=== PATIENT | female | born 1980 | race Caucasian/White ===

== ENCOUNTER 2021-07-31 15:20 | Outpatient (CLI) | payer OTHER, SELFPAY ==
--- NOTE | ~2021-07-31 | US_ITS ---
EXAMINATION: US venous doppler [facility] DATE: 07/31/2021 15:49 INDICATION: Left lower limb pain TECHNIQUE: Bearden scale images without and with compression and Doppler images of the left lower extrem ity veins were obtained. COMPARISON: None FINDINGS: The left common femoral vein, profunda femoral vein, femoral vein, popliteal vein, peroneal trunk, posterior tibial veins, and greater saphenous vein are patent. IMPRESSION: 1. Patent left lower extremity veins. No evidence of deep venous thrombosis. Reviewed, dictated and finalized at location A.
== END 2021-07-31 15:21 | disposition home or self-care (01) ==
LOC: CHSIMG 15:26
PROVIDERS: PCP Family Medicine; Visit Provider Nurse Practitioner Psychiatric/Mental Health
DX: M79.606 Pain in leg, unspecified (principal)
CPT/HCPCS: 93971

== ENCOUNTER 2023-02-18 14:28 | Outpatient (CLI) | payer OTHER, SELFPAY ==
--- NOTE | ~2023-02-18 | US_ITS ---
EXAMINATION:US venous doppler LE RT INDICATION:Right ankle and calf pain TECHNIQUE: Multiple grayscale, color flow and Doppler images of the right lower extremity deep venous systems were obtained and reviewed. COMPARISON:No prior studies for comparison. FINDINGS: The common femoral, superficial femoral and popliteal veins demonstrate normal respiratory variation, augmentation and compressibility. Color flow is also seen within the posterior tibial, pe roneal, greater saphenous and profunda veins. IMPRESSION: 1: No lower extremity deep venous thrombosis. Reviewed, dictated and finalized at location A.
== END 2023-02-18 14:29 | disposition home or self-care (01) ==
LOC: CHSIMG 14:31
PROVIDERS: PCP Family Medicine; Visit Provider Registered Nurse
DX: M79.604 Pain in right leg (principal)
CPT/HCPCS: 93971

== ENCOUNTER 2023-02-23 10:29 | Outpatient (CLI) | payer OTHER, SELFPAY ==
--- NOTE | 2023-02-23 11:00 | EST_ITS ---
Patient Info Name: Josette Carcamo Age: 42 years : 1980 Gender: Female Ht: 65 in Wt: 156 lbs BSA: 1.82 m2 Heart Rhythm: Sinus Rhythm Technical Quality: Good Exam Date: 02/23/2023 10:47 AM Exam Location: [id number] Patient Status: Outpatient Admit Date: 02/23/2023 Staff Ordering Physician: Kait, Nelson CARVER Attending Provider: Kait, Nelson CARVER Exam Type: CA stress test treadmill Study Info A treadmill exercise stress test was performed. Summary 1. 1. Negative Kyle exercise stress test for ischemic ST changes by ECG criteria. 2. 2. Good functional capacity, achieving 12 METs of workload. 3. 3. Baseline hypertension. 4. 4. Appropriate HR response to exercise. 5. 5. Appropriate HR recovery at 1 minute post exercise. 6. 6. No imaging with stress testing. Protocol: Kyle Stress ECG Details Stage: REST Duration (min): 0 min : 49 sec Speed (mph): 0.0 Grade (%): 0 HR (bpm): 94 SBP (mmHg): 151 DBP (mmHg): 48 METS: --- Stage: REST Duration (min): 1 min : 10 sec Speed (mph): 0.0 Grade (%): 0 HR (bpm): 94 SBP (mmHg): 151 DBP (mmHg): 48 METS: --- Stage: STAGE 1 Duration (min): 1 min : 0 sec Speed (mph): 1.7 Grade (%): 10 HR (bpm): 116 SBP (mmHg): 151 DBP (mmHg): 48 METS: --- Stage: STAGE 1 Duration (min): 2 min : 0 sec Speed (mph): 1.7 Grade (%): 10 HR (bpm): 124 SBP (mmHg): 151 DBP (mmHg): 48 METS: --- Stage: STAGE 1 Duration (min): 3 min : 0 sec Speed (mph): 1.7 Grade (%): 10 HR (bpm): 121 SBP (mmHg): 162 DBP (mmHg): 57 METS: --- Stage: STAGE 2 Duration (min): 1 min : 0 sec Speed (mph): 2.5 Grade (%): 12 HR (bpm): 134 SBP (mmHg): 162 DBP (mmHg): 57 METS: --- Stage: STAGE 2 Duration (min): 2 min : 0 sec Speed (mph): 2.5 Grade (%): 12 HR (bpm): 142 SBP (mmHg): 162 DBP (mmHg): 57 METS: --- Stage: STAGE 2 Duration (min): 3 min : 0 sec Speed (mph): 2.5 Grade (%): 12 HR (bpm): 145 SBP (mmHg): 162 DBP (mmHg): 57 METS: --- Stage: STAGE 3 Duration (min): 1 min : 0 sec Speed (mph): 3.4 Grade (%): 14 HR (bpm): 162 SBP (mmHg): 120 DBP (mmHg): 62 METS: --- Stage: STAGE 3 Duration (min): 2 min : 0 sec Speed (mph): 3.4 Grade (%): 14 HR (bpm): 164 SBP (mmHg): 120 DBP (mmHg): 62 METS: --- Stage: STAGE 3 Duration (min): 3 min : 0 sec Speed (mph): 3.4 Grade (%): 14 HR (bpm): 167 SBP (mmHg): 120 DBP (mmHg): 62 METS: --- Stage: STAGE 4 Duration (min): 1 min : 0 sec Speed (mph): 4.2 Grade (%): 16 HR (bpm): 179 SBP (mmHg): 120 DBP (mmHg): 62 METS: --- Stage: STAGE 4 Duration (min): 1 min : 0 sec Speed (mph): 4.2 Grade (%): 16 HR (bpm): 178 SBP (mmHg): 120 DBP (mmHg):
== END 2023-02-23 10:30 | disposition home or self-care (01) ==
PROVIDERS: PCP Family Medicine; Visit Provider Registered Nurse
DX: R07.9 Chest pain, unspecified (principal)
CPT/HCPCS: 93017

== ENCOUNTER 2024-09-28 11:58 | Outpatient (CLI) | payer OTHER, SELFPAY ==
--- NOTE | ~2024-09-28 | US_ITS ---
EXAMINATION: US pelvic complete w TV DATE: 09/28/2024 12:39 INDICATION: Pelvic pain TECHNIQUE: Multiple transabdominal and endovaginal sonographic images of the pelvis were obtained. COMPARISON: None. FINDINGS: The uterus measures 9.0 x 3.1 x 3.7 cm. The endometrial complex measures 3 mm in thickness. T-shaped linear echogenic and shadowing IUD within the endometrial canal. For millimeter anechoic nabothian c yst at the cervix. The bilateral ovaries were unable to be visualized due to shadowing bowel gas. The re is no free fluid in the pelvis. IMPRESSION: 1. IUD in expected position within the normal uterus. Reviewed, dictated and finalized at location A. BITS COORDINATOR
== END 2024-09-28 11:59 | disposition home or self-care (01) ==
LOC: CHSIMG 12:01
PROVIDERS: PCP Family Medicine; Visit Provider Registered Nurse
DX: R10.2 Pelvic and perineal pain (principal); Z97.5 Presence of (intrauterine) contraceptive device
CPT/HCPCS: 76830; 76856

== ENCOUNTER 2024-11-01 08:45 | Outpatient (CLI) | payer OTHER, SELFPAY ==
--- NOTE | ~2024-11-01 | CT_ITS ---
CT of the Abdomen and Pelvis: Indication: Abdominal pain Technique: 2.5 mm axial scans were obtained through the abdomen and pelvis following intravenous adm inistration of 100 cc of Omnipaque 350. Dose reduction technique was used on this scan by utilizing a utomated exposure control and iterative reconstruction technique. The dose-length product (DLP) was 5 29.45 mGy-cm. Findings: Scans through the lung bases are unremarkable. The liver, spleen, pancreas, adrenals and kidneys are within normal limits. Cholecystectomy clips are present. There are mild atherosclerotic calcifications of the aorta. No lymphadenopathy. No bowel obstruction. Possible mild wall thickening of the sigmoid colon/rectum. No abscess or free a ir. Images through the pelvis were performed. IUD in place. No other pelvic mass seen. Urinary bladder un remarkable. No ascites. Impression: Possible colitis of the distal sigmoid colon and rectum. Correlate clinically. Reviewed, dictated and finalized at [facility]. GROWER Impression: Possible colitis of the distal sigmoid colon and rectum. Correlate clinically.
== END 2024-11-01 08:46 | disposition home or self-care (01) ==
PROVIDERS: PCP Family Medicine; Visit Provider Registered Nurse
DX: R10.2 Pelvic and perineal pain (principal)
CPT/HCPCS: 74177; Q9967

== ENCOUNTER 2025-02-28 08:27 | Outpatient (CLI) | payer OTHER, SELFPAY ==
--- OUTSIDE RECORDS SUMMARY | 2025-02-28 08:46 | XMS_ITS ---
Author Organization Unknown Address [address] [place] [phone] Phone Care Team Providers Care Motor Coach Chauffeur Name Role Phone JASMYNE Fisher Primary Unavailable Immunization Immunization Date Status Additional Notes Code Code System DTP 01/06/1983 Completed 01 CVX DTP 10/12/1984 Completed 01 CVX DTP 02/10/1986 Completed CVX DTP 02/16/1987 Completed CVX OPV 01/06/1983 Completed 02 CVX OPV 10/12/1984 Completed 02 CVX OPV 02/10/1986 Completed 02 CVX OPV 02/16/1987 Completed 02 CVX MMR 02/25/1985 Completed 03 CVX MMR 07/26/1993 Completed 03 CVX Td (adult), 2 Lf tetanus toxoid, preservative free, adsorbed 07/22/1997 Completed 09 CVX Hep B, adult 03/08/2015 Completed 43 CVX Hep B, adult 04/05/2015 Completed 43 CVX Hep B, adult 09/06/2015 Completed 43 CVX Social History Type Status Start Date End Date Code Code Syst em Smoking History Never smoker (Never Smoked) 414762716 SNOMED CT Sex Female Assessment You had the following problems:ABNORMAL LEVEL OF BLOOD MINERALMAJOR DEPRESSIVE DISORDER, SINGLE EPISODE, SEVERE WITHOUT PSYCHOTIC FEATURESANEMIA, UNSPECIFIEDAUTOIMMUNE THYROIDITISOTHER FATIGUE Hospital Discharge Instructions Should you have any questions prior to discharge, please contact a member of your healthcare team. If you have left the hospital and have any questions, please contact your primary care physician. Reason For Referral No Data Found Problems Problem Start Date Resolved Date Status Code Code System ABNORMAL LEVEL OF BLOOD MINERAL active 188932342 SNOMED-CT MAJOR DEPRESSIVE DISORDER, SINGLE EPISODE, SEVERE WITHOUT PSYCHOTIC FEATURES active 33895690 SNOMED-CT ANEMIA, UNSPECIFIED active 650286638 SNOMED-CT AUTOIMMUNE THYROIDITIS active 3846489 4 SNOMED-CT OTHER FATIGUE active 66560680 SNOMED -CT Plan of Treatment Digital Kenny Screen Bilateral (75764) Encounters Encounter Diagnosis Start Date Code Code Sys tem Backache 08/26/2024 921009305 SNOMED-CT Personal Care Team Section Performer Name Performer Role Active Date Inactive Da leonard
--- OUTSIDE RECORDS SUMMARY | 2025-02-28 08:46 | XMS_ITS ---
Author Organization Unknown Address [id number] [place] [phone] Phone Care Team Providers Care Psychotherapist Name Role Phone ELMER LOCO Attending Unavailable GEOVANNA Fisher Primary Unavailable Immunization Immunization Date Status Additional Notes Code Code System DTP 01/06/1983 Completed 01 CVX DTP 10/12/1984 Completed 01 CVX DTP 02/10/1986 Completed 01 CVX DTP 02/16/1987 Completed CVX OPV 01/06/1983 [...] Hep B, adult 09/06/2015 Completed [address] BRAIN WO CONTRAST - Compl eted: 08/16/2024 23:59 LOINC: EXAM DESCRIPTION: CT BRAIN WO CONTRAST REASON FOR STUDY: Headache Pt had C Spine Surgery 07-06-24 Pt states Headache since Surgery No [id number] Duration: 6 weeks TECHNIQUE: Axial images acquired through the brain without intravenous contrast. Coronal and sagittal reformats were performed. Images stored on PACS. Automated mA/kV exposure control was used as a dose optimization technique for this examination and patient examination was performed in strict accordance with principles of ALARA. COMPARISON: None. FINDINGS: BRAIN: No hemorrhage, edema or mass effect. No recent infarct. Normal white matter. EXTRA-AXIAL SPACES: No fluid collections. No masses. CALVARIUM: No fracture. SINUSES/MASTOIDS: There is scattered partial opacification and mucosal thickening throughout the ethmoid air cells. There is mild mucosal thickening of the left frontal sinus and maxillary sinuses bilaterally. The remaining paranasal sinuses and mastoid air cells are clear. ORBITS: No significant abnormality. OTHER: No other significant abnormality. IMPRESSION: No acute intracranial abnormality. Findings were called to Dr. Joshi by [facility] staff at 00:23 on 08/17/2024 . THIS IS AN ELECTRONICALLY VERIFIED FINAL REPORT 08/17/2024 12:23 AM - Electronically signed by Octavia Quiroz M.D. SN: SN Report ID: [id number] Reading Location: [id number] Social History Type Status Start Date End Date Code Code Syst em Smoking History Never smoker (Never Smoked) 754650791 SNOMED CT Sex Female Assessment You had [...] System ABNORMAL LEVEL OF BLOOD MINERAL active 641533723 SNOMED-CT MAJOR DEPRESSIVE DISORDER, SINGLE EPISODE, SEVERE WITHOUT PSYCHOTIC FEATURES active 98362277 SNOMED-CT ANEMIA, UNSPECIFIED active 749009936 SNOMED-CT AUTOIMMUNE THYROIDITIS active 6094129 4 SNOMED-CT OTHER FATIGUE active 20102693 SNOMED -CT Plan of Treatment Digital Kenny Screen Bilateral (50925) Encounters Encounter Diagnosis Start Date Code Code Sys tem Headache, unspecified 08/16/2024 SNOMED -CT Personal Care Team Section Performer Name Performer Role Active Date Inactive Da te Imaging Narrative Notes
--- OUTSIDE RECORDS SUMMARY | 2025-02-28 08:46 | XMS_ITS ---
Author Organization Unknown Address [address] [place], [place] [phone] Phone Care Team Providers Care Cat Skinner Name Role Phone YEN MARTINEZ Attending Unavailable GEOVANNA Fisher Primary Unavailable Immunization [...] B, adult 09/06/2015 Completed 43 CVX Results THORACIC SPINE 3V - Complete d: 07/26/2024 12:59 LOINC: EXAM DESCRIPTION: THORACIC SPINE 3V REASON FOR STUDY: PAIN IN UPPER BACK BETWEEN SHOULDERS C5 DISC BLOWN JUN 2024 Duration: 1 YEAR Previous Surgery: CSPINE SURGERY JUL 06 2024 TECHNIQUE: 3 radiographic view(s) of the thoracic spine. COMPARISON: 07/13/2020 FINDINGS: Mild dextrocurvature of the thoracic spine. The thoracic spine alignment is otherwise normal. Vertebral body heights are normal. There is no acute fracture. There is mild multilevel midthoracic spine degenerative disc disease. Instrumented cervical spine fusion is incompletely evaluated on this examination. Surgical clips in the right upper quadrant. IMPRESSION: No acute spinal abnormality. Mild multilevel midthoracic spine degenerative disc disease. THIS IS AN ELECTRONICALLY VERIFIED FINAL REPORT 07/28/2024 1:15 PM - Electronically signed by Selvin Baker M.D. AT: AT Report ID: [id number] Reading Location: [place] [address] Social History Type Status Start Date End Date Code Code Syst em Smoking History Never smoker (Never Smoked) 012855490 SNOMED CT Sex Female Assessment You had [...] System ABNORMAL LEVEL OF BLOOD MINERAL active 230676480 SNOMED-CT MAJOR DEPRESSIVE DISORDER, SINGLE EPISODE, SEVERE WITHOUT PSYCHOTIC FEATURES active 39456105 SNOMED-CT ANEMIA, UNSPECIFIED active 859700440 SNOMED-CT AUTOIMMUNE THYROIDITIS active 0931981 4 SNOMED-CT OTHER FATIGUE active 10675888 SNOMED -CT Plan of Treatment Digital Kenny Screen Bilateral (18089) Encounters Encounter Diagnosis Start Date Code Code Sys tem Other intervertebral disc degeneration, thoracic regio n 07/26/2024 SNOMED-CT Personal Care Team Section Performer Name Performer Role Active Date Inactive Da te Imaging Narrative Notes
--- OUTSIDE RECORDS SUMMARY | 2025-02-28 08:47 | XMS_ITS ---
Author Organization Unknown Address [id number] [place] [phone] Phone Care Team Providers Care Naval Science Teacher Name Role Phone BRYNN ROSA Attending Unavailable GEOVANNA Fisher Primary Unavailable Immunization Immunization Date Status Additional Notes Code Code System DTP 01/06/1983 Completed 01 CVX DTP 10/12/1984 Completed 01 CVX DTP 02/10/1986 Completed CVX DTP 02/16/1987 Completed CVX OPV 01/06/1983 Completed CVX OPV 10/12/1984 Completed 02 CVX OPV 02/10/1986 Completed 02 CVX OPV 02/16/1987 Completed 02 CVX MMR 02/25/1985 Completed 03 CVX MMR 07/26/1993 Completed 03 CVX Td (adult), 2 Lf tetanus toxoid, preservative free, adsorbed 07/22/1997 Completed 09 CVX Hep B, adult 03/08/2015 Completed 43 CVX Hep B, adult 04/05/2015 Completed 43 CVX Hep B, adult 09/06/2015 Completed 43 CVX Results DIG 3D KENNY SCREENING VALE GARCIA - Completed: 04/18/2024 09:27 LOINC: See Scanned Image Attachment for Report Dictated By: Trans Initials: BG Trans Date: 04/20/24 16:05 <<REPDIST>> Social History Type Status Start Date End Date Code Code Syst em Smoking History Never smoker (Never Smoked) 738906683 SNOMED CT Sex Female Assessment You had [...] System ABNORMAL LEVEL OF BLOOD MINERAL active 464271388 SNOMED-CT MAJOR DEPRESSIVE DISORDER, SINGLE EPISODE, SEVERE WITHOUT PSYCHOTIC FEATURES active 65574533 SNOMED-CT ANEMIA, UNSPECIFIED active 091682158 SNOMED-CT AUTOIMMUNE THYROIDITIS active 3729017 4 SNOMED-CT OTHER FATIGUE active 22894143 SNOMED -CT Plan of Treatment Digital Kenny Screen Bilateral (33687) Encounters Encounter Diagnosis Start Date Code Code Sys tem Screening mammography 04/18/2024 33553163 SNOMED -CT Personal Care Team Section Performer Name Performer Role Active Date Inactive Da te Imaging Narrative Notes [facility] 04/20/2024 16:[address] [address] RADIOLOGY REPORT Patient Number: [id number] Patient Name: CONNER RAWLS Type: O/P MR Number: [id number] : 1980 Age: 43 Sex: F Room #: Admit Date: 04/18/24 Discharge Date 04/18/24 Ordering Physician: BRYNN ROSA Family Physician: GEOVANNA LÓPEZ Second Physician: X-Ray Number : [id number] DIG 3D KENNY SCREENING BILATERA [id number] COMPLETE:04/18/24 09:27 [id number] (REASONS-DIG 3D KENNY SCREENING BILATERAL: SCREENING See Scanned Image Attachment for Report Dictated By: Trans Initials: Trans Date: 04/20/24 16:05 <<REPDIST>>
--- OUTSIDE RECORDS SUMMARY | 2025-02-28 08:47 | XMS_ITS | Encounter Summary ---
Author Organization [facility] Address [facility] [place] [address] Care Team Providers Care Nurse First Assist Name Role Phone Kyle Ash MD Primary Care Provider Encounter Details Date Type Department Care Team (Late st Contact Info) Description 04/09/2019 Abstract SFL CONVERSION [address] [place] [address] , Generic Conversion, Social History Tobacco Use Types Packs/Day Years Used Date Smoking Tobacco: Never Assessed Comments Unknown Sex and Gender Information Value Date Recorded Sex Assigned at Not on file Legal Sex Female 8:50 PM CDT Gender Identity Not on file Sexual Orientation Not on file documented as of this encounter Plan of Treatment Not on file documented as of this encounter Visit Diagnoses Not on filedocumented in this encounter Care Teams Nurse First Assist Relationship Specialty Start Date End Date Kyle Ash MD [address] [place] [address] PCP - General FAMILY PRACTICE 09/24/21 documented as of this encounter
--- OUTSIDE RECORDS SUMMARY | 2025-02-28 08:47 | XMS_ITS | Clinical Summary ---
Author Organization [facility] Physician Office Building [address] [place] [phone] Care Team Providers Care Processes Chemical Design Engineer Name Role Phone Kyle Ash MD Primary Care Provider [phone] Allergies Active Allergy Reactions Criticality Noted Date Comments Penicillins Diarrhea Low 06/17/2018 Sulfasalazine Unknown 06/17/2018 Medications levonorgestrel (MIRENA) IUD 1 each by intrauterine route Active cyclobenzaprin e (FLEXERIL) 5 mg tablet 06/09/20 23 Active LORazepam (ATIVAN) 0.5 mg tablet 06/04/20 23 Active rizatriptan (MAXALT) 10 mg tabletIndicati ons:Migraine Take one tablet po q2h as needed as soon as feel headache is coming. Do not take more then 2 tablets in 24 hours. 9 tablet 11 06/10/20 23 Active azelastine (ASTELIN) 137 mcg (0.1 %) nasal spray Administer 1 spray into each nostril 09/09/20 23 Active fluticasone propionate (FLONASE) 50 mcg/actuation nasal spray Administer 1 spray into each nostril 09/09/20 23 Active norethindrone- e.estradioL-ir on (11/21) 1 mg-20 mcg (21)/75 mg (7) per tablet 11/08/19 25 Active levothyroxine (SYNTHROID) 25 mcg tablet Take 1 tablet (25 mcg total) by mouth metal melter before breakfast Active galcanezumab-g nlm (Emgality Syringe) 120 mg/mL syringeIndicat ions:Migraine Prevention Inject 120 mg under the skin every 30 (thirty) days 1 mL 3 11/29/19 25 Active topiramate (TOPAMAX) 50 mg tabletIndicati ons:Migraine with aura and without status migrainosus, not intractable TAKE 1 TABLET BY MOUTH TWICE A DAY 60 tablet 5 01/31/20 25 Active topiramate (TOPAMAX) 50 mg tabletIndicati ons:Migraine with aura and without status migrainosus, not intractable Take 1 tablet (50 mg total) by mouth 2 (two) times a day 60 tablet 5 09/14/20 24 025 Discontinued Active Problems Problem Noted Date Diagnosed Date Pineal gland, tumor 08/25/2024 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 No indication for thyroid hormone replacement Use of T3 would be empirical, without any medical evidence. Risk of hyperthryodism with T3 was discussed Hold T3 Recheck levels in 2-3 weeks. Surgical History Surgery Date Site/Laterality Comments FL FLUORO GUIDED LUMBAR PUNCTURE 01/07/2019 Right Medical History Medical History Date Comments Chronic tension headaches Migraines Carmelo's thyroiditis Headache, tension-type Family History Medical History Relation Name Comments Hypertension Mother Migraines Mother Seizures Sister 1 Neurobehcet Sister 2 Relation Name Status Comments Mother Sister 1 Alive Sister 2 Social History Tobacco Use Types Packs/Day Years Used Date Smoking Tobacco: Former Smokeless Tobacco: Never Tobacco Cessation:Counseling Given: Not Answered Alcohol Use Standard Drinks/Week Comments No 0 (1 standard drink = 0.6 oz pur e alcohol) PHQ-2 Answer Date Recorded PHQ-2 Score 2 06/25/2019 Comments Unknown Sex and Gender Information Value Date Recorded Sex Assigned at Not on file Legal Sex Female 3:35 PM CDT Gender Identity Female 06/10/2021 5:14 PM CDT Sexual Orientation Straight 06/10/2021 5: 14 PM CDT Obstetrics History Last Filed Vital Signs Vital Sign Reading Time Taken Comments Blood Pressure 126/80 11/29/2024 1:17 PM RECONCILING CLERK Pulse 72 11/29/2024 1:17 PM RECONCILING CLERK Temperature 36.3 C (97.4 F) 01/07/2019 11:00 AM RECONCILING CLERK Respiratory Rate 18 11/29/2024 1:17 PM RECONCILING CLERK Oxygen Saturation 98% 11/29/2024 1:17 PM RECONCILING CLERK Inhaled Oxygen Concentration - - Weight 76.2 kg (168 lb) 11/29/2024 1:17 PM RECONCILING CLERK Height 165.1 cm (5' 5 ) 11/29/2024 1:17 PM RECONCILING CLERK Body Mass Index 27.96 11/29/2024 1:17 PM RECONCILING CLERK Plan of Treatment Health Maintenance Due Date Last Done Comments Breast Cancer Screening-Mammogram 1980 Hepatitis C Screening 1980 Varicella Vaccines (1 of 2 - 13+ 2-dose series) 1995 DTaP/Tdap/Td Vaccine (5 - Tdap) 07/23/1997 07/22/1997, 02/16/1987, 02/10/1986, Additional history exists Regular Well Visit/Exam 18-64 2000 Depression Screening 08/17/2019 08/17/2018 Cervical Cancer Screening 06/14/2021 06/14/2020 Influenza Vaccine (Season Ended) 2025 Hepatitis B Screening Completed 09/06/2015 , 04/05/2015, 03/08/2015 HPV Vaccines Aged Out No longer eligi ble based on patient's age to complete this topic Pneumococcal vaccine <65 Aged Out No longer eligible based on patient's age to complete this topic Insurance Care Teams Processes Chemical Design Engineer Relationship Specialty Start Date End Date Kyle Ash MD PCP - General Family Medicine 06/10/23
--- OUTSIDE RECORDS SUMMARY | 2025-02-28 08:47 | XMS_ITS ---
Author Organization Unknown Address [address] [place] [phone] Phone Care Team Providers Care Experimental Mechanic Electrical Name Role Phone JASMYNE Fisher Primary Unavailable [...] em Smoking History Never smoker (Never Smoked) 174316637 SNOMED CT Sex Female Assessment You had [...] System ABNORMAL LEVEL OF BLOOD MINERAL active 688018137 SNOMED-CT MAJOR DEPRESSIVE DISORDER, SINGLE EPISODE, SEVERE WITHOUT PSYCHOTIC FEATURES active 93122725 SNOMED-CT ANEMIA, UNSPECIFIED active 755841560 SNOMED-CT AUTOIMMUNE THYROIDITIS active 5656376 4 SNOMED-CT OTHER FATIGUE active 93203603 SNOMED -CT Plan of Treatment Digital Kenny Screen Bilateral (89558) Encounters Encounter Diagnosis Start Date Code Code Sys tem Dorsalgia, unspecified 09/02/2024 SNOME D-CT Personal Care Team Section Performer Name Performer Role Active Date Inactive Marcelo valle
--- OUTSIDE RECORDS SUMMARY | 2025-02-28 08:47 | XMS_ITS ---
Author Organization Unknown Address [id number] [place] [address] [phone] Phone Care Team Providers Care Conference Services Director Name Role Phone BRYNN ROSA Attending Unavailable [...] B, adult 09/06/2015 Completed 43 CVX Results US THYROID - Completed: 12/31 15:30 LOINC: EXAM DESCRIPTION: US THYROID REASON FOR STUDY: Difficulty swallowing with catching feeling on the left for six-months. TECHNIQUE: Ultrasound of the thyroid was performed with grayscale and color doppler. COMPARISON: 05/09/2021 FINDINGS: RIGHT: The right thyroid lobe measures 4.1 x 1.3 x 1.1 cm, previously 4.3 x 1.2 x 0.9 cm. The right thyroid lobe is heterogeneous in echotexture. LEFT: The left thyroid lobe measures 3.3 x 1.4 x 1.1 cm, previously 3.5 x 1.1 x 1.1 cm. The left thyroid lobe is heterogeneous in echotexture. ISTHMUS: The isthmus measures 0.4 cm, previously 0.2 cm in AP dimension. The isthmus is heterogeneous in echotexture. VASCULARITY: Normal. OTHER: No other significant finding. IMPRESSION: Heterogeneous thyroid without focal lesion. Similar to previous ACR TI-RADS Risk Category: 1 REFERENCE: According to the ACR Thyroid Imaging, Reporting and Data System (TI- RADS): White Paper of the ACR TI-RADS Committee Mar, 2017 recommendations regarding the management of thyroid nodules are as follows: 1. TI-RADS 1: Risk of malignancy <2%, no FNA or follow up required. 2. TI-RADS 2: Risk of malignancy <2%, no FNA or follow up required. 3. TI-RADS 3: Risk of malignancy 2%-5%. Nodules 1.5 cm or greater follow up at 1, 3 and 5 years recommended, for nodules 2.5 cm or greater FNA recommended. 4. TI-RADS 4: Risk of malignancy 5%-20% Nodules 1.0 cm or greater follow up at 1, 2, 3 and 5 years recommended, for nodules 1.5 cm or greater FNA recommended 5. TI-RADS 5: Risk of malignancy >20%. Nodules 0.5 cm or greater annual follow up for 5 years recommended, for nodules 1.0 cm or greater FNA recommended. THIS IS AN ELECTRONICALLY VERIFIED FINAL REPORT 01/15/2024 7:39 AM - Electronically signed by Eloy Kapadia M.D. RB: CAITLIN Report ID: [id number] Reading Location: [id number] Social History Type Status Start Date End Date Code Code Syst em Smoking History Never smoker (Never Smoked) 352715757 SNOMED CT Sex Female Assessment You had [...] System ABNORMAL LEVEL OF BLOOD MINERAL active 001563517 SNOMED-CT MAJOR DEPRESSIVE DISORDER, SINGLE EPISODE, SEVERE WITHOUT PSYCHOTIC FEATURES active 03713819 SNOMED-CT ANEMIA, UNSPECIFIED active 672989853 SNOMED-CT AUTOIMMUNE THYROIDITIS active 7413119 4 SNOMED-CT OTHER FATIGUE active 40281930 SNOMED -CT Plan of Treatment Digital Kenny Screen Bilateral (97360) Encounters Encounter Diagnosis Start Date Code Code Sys tem Hypothyroidism 01/12/2024 56645859 SNOMED-CT Personal Care Team Section Performer Name Performer Role Active Date Inactive Da te Imaging Narrative Notes
--- OUTSIDE RECORDS SUMMARY | 2025-02-28 08:47 | XMS_ITS | Clinical Summary ---
Author Organization [facility] Address [address] [place] [address] Care Team Providers Care Research And Development Director Name Role Phone Jarred Luis MD Primary Care Provider [phone] Source Comments [facility],non-owned Affiliates and Associated Physician Practices is amultiple site organization consisting of ambulatory clinics and hospital sitesin [place], [place], [place] and [place]. This disclosure is being madepursuant to the Care Everywhere program and may not contain all information available regarding this patient. Last updated 18.[facility] [employer] Allergies Active Allergy Reactions Criticality Noted Date Comments Penicillins Diarrhea 06/17/2018 Sulfa Drugs Unknown 06/17/2018 Medications * Be aware that medications may not be up to date on this document. Alwaysverify current medications with the patient. 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 Family History Medical History Relation Name Comments Alcohol abuse Father Anxiety Disorder Father Arthritis - Rheumatoid Father Depression Father Hypertension Father Alcohol abuse Mother Anxiety Disorder Mother Arthritis - Rheumatoid Mother Cancer - Other Mother Depression Mother Diabetes - Type 2 Mother Hyperlipidemia Mother Hypertension Mother Alcohol abuse Sister Anxiety Disorder Sister Depression Sister Relation Name Status Comments Father Mother Sister Social History Tobacco Use Types Packs/Day Years Used Date Smoking Tobacco: Never Smokeless Tobacco: Never Alcohol Use Standard Drinks/Week Comments No 0 (1 standard drink = 0.6 oz pur e alcohol) Comments Unknown Sex and Gender Information Value Date Recorded Sex Assigned at Not on file Legal Sex Female 11:30 AM CDT Gender Identity Not on file Sexual Orientation Not on file Last Filed Vital Signs Vital Sign Reading Time Taken Comments Blood Pressure 120/74 06/17/2018 11:15 AM CDT Pulse 73 06/17/2018 11:15 AM CDT Temperature - - Respiratory Rate - - Oxygen Saturation - - Inhaled Oxygen Concentration - - Weight 68.7 kg (151 lb 8 oz) 06/17/2018 11:15 AM CDT Height 167.6 cm (5' 6 ) 06/17/2018 11:15 AM CDT Body Mass Index 24.45 06/17/2018 11:15 AM CDT Plan of Treatment Health Maintenance Due Date Last Done Comments LIPID TESTING 1982 MAMMOGRAM 1982 HIV SCREENING 1997 HEPATITIS C SCREENING 05/09/2000 DTAP/TDAP/TD VACCINES (1 - Tdap) 2001 HEPATITIS B VACCINE (1 of 3 - 19+ 3-dose series) 2001 COVID-19 VACCINE (1 - 2023-2 5 season) 2024 DEPRESSION SCREENING 11/02/2024 INFLUENZA VACCINE (Season Ended) 2025 ZOSTER VACCINE (1 of 2) 2032 HIB VACCINE Aged Out No longer eligi ble based on patient's age to complete this topic HPV VACCINE Aged Out No longer eligi ble based on patient's age to complete this topic MENINGOCOCCAL (Group B) VACC INE SHARED DECISION-MAKING Aged Out No longer eligibl e based on patient's age to complete this topic MENINGOCOCCAL GROUPS A/C/Y/W VACCINE Aged Out No longer eligible b ased on patient's age to complete this topic PNEUMOCOCCAL VACCINE Aged Out No long er eligible based on patient's age to complete this topic Insurance [employer] Care Teams Research And Development Director Relationship Specialty Start Date End Date Jarred Luis MD [address] [place] [phone] PCP - General 06/02/18
--- OUTSIDE RECORDS SUMMARY | 2025-02-28 08:47 | XMS_ITS | Referral Summary ---
Author Organization [facility] [address] [place] [phone] Care Team Providers Care Laboratory Equipment Installer Name Role Phone Kyle Ahs MD Primary Care Provider Allergies Active Allergy Reactions Criticality Noted Date [...] 1 tablet (25 mcg total) by mouth supervisor cap and hat production before breakfast Active galcanezumab-g nlm (Emgality Syringe) [...] Hold T3 Recheck levels in 2-3 weeks. Social History Tobacco Use Types Packs/Day Years [...] Orientation Straight 06/10/2021 5: 14 PM CDT Last Filed Vital Signs Vital Sign Reading Time Taken Comments Blood Pressure 126/80 11/29/2024 1:17 PM PLANT ECOLOGIST Pulse 72 11/29/2024 1:17 PM PLANT ECOLOGIST Temperature 36.3 C (97.4 F) 01/07/2019 11:00 AM PLANT ECOLOGIST Respiratory Rate 18 11/29/2024 1:17 PM PLANT ECOLOGIST Oxygen Saturation 98% 11/29/2024 1:17 PM PLANT ECOLOGIST Inhaled Oxygen Concentration - - Weight 76.2 kg (168 lb) 11/29/2024 1:17 PM PLANT ECOLOGIST Height 165.1 cm (5' 5 ) 11/29/2024 1:17 PM PLANT ECOLOGIST Body Mass Index 27.96 11/29/2024 1:17 PM PLANT ECOLOGIST Plan of Treatment Not on file Insurance [facility] Care Teams Laboratory Equipment Installer Relationship Specialty Start Date End Date Kyle Ash MD PCP - General Family Medicine 06/10/23
--- OUTSIDE RECORDS SUMMARY | 2025-02-28 08:47 | XMS_ITS ---
Author Organization Unknown Address [address] [place] [address] [phone] Phone Care Team Providers Care Clin Asst Name Role Phone ALKA ALMANZAR Attending Unavailable GEOVANNA Fisher Primary Unavailable Immunization [...] adult 09/06/2015 Completed 43 CVX Results US ECHO W/ COLOR - Completed : 01/11/2024 13:40 LOINC: See Scanned Image Attachment for Report Dictated By: Trans Initials: [facility] Trans Date: 01/15/24 11:37 <<REPDIST>> Social History Type Status Start Date End Date Code Code Syst em Smoking History Never smoker (Never Smoked) 571337511 SNOMED CT Sex Female Assessment You had [...] System ABNORMAL LEVEL OF BLOOD MINERAL active 277318878 SNOMED-CT MAJOR DEPRESSIVE DISORDER, SINGLE EPISODE, SEVERE WITHOUT PSYCHOTIC FEATURES active 13255760 SNOMED-CT ANEMIA, UNSPECIFIED active 680945603 SNOMED-CT AUTOIMMUNE THYROIDITIS active 1306361 4 SNOMED-CT OTHER FATIGUE active 94385443 SNOMED -CT Plan of Treatment Digital Kenny Screen Bilateral (86321) Encounters Encounter Diagnosis Start Date Code Code Sys tem Chest pain 01/11/2024 67488888 SNOMED-CT Personal Care Team Section Performer Name Performer Role Active Date Inactive Da te Imaging Narrative Notes [facility] 01/15/2024 11:37 [place] [id number] RADIOLOGY REPORT Patient Number: [id number] Patient Name: CONNER RAWLS Type: O/P MR Number: [id number] : 1980 Age: 43 Sex: F Room #: Admit Date: 01/11/24 Discharge Date 01/11/24 Ordering Physician: ALKA ALMANZAR Family Physician: GEOVANNA LÓPEZ Second Physician: X-Ray Number : [id number] US ECHO W/ COLOR [id number] COMPLETE:01/11/24 13:40 APC [id number] (REASON-ECHO COMPLTE: chest pain See Scanned Image Attachment for Report Dictated By: Gaston Initials: ANDREZ Trans Date: 01/15/24 11:37 <<REPDIST>>
--- OUTSIDE RECORDS SUMMARY | 2025-02-28 08:48 | XMS_ITS ---
Author Organization Unknown Address [address] [place] [address] [phone] Phone Care Team Providers Care Emergency Department Director Name Role Phone JASMYNE Fisher Primary Unavailable [...] em Smoking History Never smoker (Never Smoked) 199295856 SNOMED CT Sex Female Assessment You had [...] System ABNORMAL LEVEL OF BLOOD MINERAL active 454709100 SNOMED-CT MAJOR DEPRESSIVE DISORDER, SINGLE EPISODE, SEVERE WITHOUT PSYCHOTIC FEATURES active 04825434 SNOMED-CT ANEMIA, UNSPECIFIED active 359780599 SNOMED-CT AUTOIMMUNE THYROIDITIS active 9585751 4 SNOMED-CT OTHER FATIGUE active 22216506 SNOMED -CT Plan of Treatment Digital Kenny Screen Bilateral (63950) Encounters Encounter Diagnosis Start Date Code Code Sys tem Dorsalgia, unspecified 10/04/2024 SNOME D-CT Personal Care Team Section Performer Name Performer Role Active Date Inactive Marcelo valle
--- OUTSIDE RECORDS SUMMARY | 2025-02-28 08:48 | XMS_ITS ---
Author Organization Unknown Address [id number] [place] [address] [phone] Phone Care Team Providers Care Fur Trapper Name Role Phone RUMA STAFFORD Attending Unavailable GEOVANNA Fisher Primary Unavailable Immunization Immunization Date Status Additional Notes Code Code System DTP 01/06/1983 Completed 01 CVX DTP 10/12/1984 Completed CVX DTP 02/10/1986 Completed CVX DTP 02/16/1987 Completed CVX OPV 01/06/1983 Completed CVX OPV 10/12/1984 Completed CVX OPV 02/10/1986 Completed 02 CVX OPV 02/16/1987 Completed 02 CVX MMR 02/25/1985 Completed 03 CVX MMR 07/26/1993 Completed 03 CVX Td (adult), 2 Lf tetanus toxoid, preservative free, adsorbed 07/22/1997 Completed 09 CVX Hep B, adult 03/08/2015 Completed 43 CVX Hep B, adult 04/05/2015 Completed 43 CVX Hep B, adult 09/06/2015 Completed 43 CVX Results BUN/CREAT - Collect Date/Duane e: 05/19/2024 12:49 [facility] ID: [id number] [address] [place], [place], [id number] LOINC: 3097-3 Test Value Unit Reference Range Code Code System Flag BUN 7 mg/dL L=7 H=20 3094-0 LOINC CREATININE 0.70 mg/dL L=0.52 H=1.04 2160-0 LOINC AGE 44 76537-7 LOINC eGFR NON-AFR 98 ml/min eGFR AFR AMER 119 ml/min MRI CERVICAL WO CONTRAST - C ompleted: 05/19/2024 14:42 LOINC: EXAM DESCRIPTION: MRI CERVICAL WO CONTRAST REASON FOR STUDY: Neck pain left arm radiculopathy; bilateral arm numbness; left arm weakness Duration: 06/2022 TECHNIQUE: Sagittal and Axial imaging includes T1, T2, STIR and gradient echo sequences. COMPARISON: Cervical spine radiographs 06/09/2023 FINDINGS: ALIGNMENT: Straightening of the cervical spine. Minimal retrolisthesis of C5 on C6. VERTEBRAE: Vertebral body height maintained. Normal appearing marrow. DISCS: Disc heights well-maintained. CORD: Normal in size and signal intensity. BASE OF BRAIN: No significant finding. UPPER THORACIC: Incompletely imaged. No significant spinal stenosis or foraminal stenosis. INDIVIDUAL LEVELS: C2-C3: The disc is normal in configuration. There is mild facet arthropathy. There is no uncovertebral joint disease. There is no neuroforaminal stenosis. There is no spinal canal stenosis. C3-C4: Minimal disc bulge asymmetric to the right. There is mild facet arthropathy. There is no uncovertebral joint disease. There is no neuroforaminal stenosis. There is no spinal canal stenosis. C4-C5: Minimal disc bulge with tiny central disc protrusion. There is mild facet arthropathy. There is no uncovertebral joint disease. There is no neuroforaminal stenosis. There is no spinal canal stenosis. C5-C6: There is a large central disc extrusion measuring 17 x 5 x 10 mm (CC x AP x TV). The extruded material appears to be in continuity with the C5-C6 disc, with MR signal characteristics following disc material in all sequences. The extruded disc segment is located in the ventral epidural space posterior to the C6 vertebral body, causing moderate canal narrowing, abutting the ventral surface of the cervical spinal cord. There is mild facet arthropathy. There is no uncovertebral joint disease. There is no neuroforaminal stenosis. There is moderate spinal canal stenosis. C6-C7: Mild disc bulge, with continuity of the C5-C6 central disc extrusion centrally. There is mild facet arthropathy. There is mild left uncovertebral joint disease. There is mild left neuroforaminal stenosis. There is mild to moderate spinal canal stenosis. C7-T1: The disc is normal in configuration. There is no facet arthropathy. There is no uncovertebral joint disease. There is no neuroforaminal stenosis. There is no spinal canal stenosis. IMPRESSION: -- IMPRESSION -- 1. Large central disc extrusion extending to the ventral epidural space at C6, causing moderate canal narrowing as detailed above. 2. Otherwise mild degenerative changes in the cervical spine without substantial neural foraminal or canal stenosis. THIS IS AN ELECTRONICALLY VERIFIED FINAL REPORT 05/19/2024 5:25 PM - Electronically signed by Issac Arnold M.D. WW: MARCOS Report ID: [id number] Reading Location: [id number] MRI LUMBAR W+WO CONTRAST - C ompleted: 05/19/2024 14:42 LOINC: EXAM DESCRIPTION: MRI LUMBAR W+WO CONTRAST REASON FOR STUDY: Persistent lower back pain with bilateral radiculopathy and numbness. Patient reports no trauma/injury Duration: 2009 Previous Surgery: Lumbar Spine - 2010 and 2012 TECHNIQUE: Sagittal and Axial imaging includes T1, T1 post gadolinium, T2, and STIR sequences. CONTRAST TYPE/DOSE: 14 mL of Prohance injected via Left AC COMPARISON: Lumbar spine MR 02/13/2021. FINDINGS: SEGMENTATION: No transitional anatomy. The lowest well-developed disc space is labeled L5-S1. HARDWARE/POST-TREATMENT: There are postsurgical changes of posterior decompression with L3-L5 left hemilaminectomy. ALIGNMENT: Normal. VERTEBRAE: Vertebral body height maintained. Normal appearing marrow. No abnormal enhancing lesion identified. DISCS: Degenerative disc disease with disc desiccation height loss, worst at L4- L5. The intervertebral discs at L1-L2 through L3-L4 are relatively well-preserved. CORD/CAUDA: Normal in size and signal intensity. Conus at the appropriate level. LOWER THORACIC: Incompletely imaged. No stenosis seen. SACRUM: No marrow edema of the visualized upper sacrum. VISUALIZED ABDOMEN: There is an intrauterine device. There is a 13 mm right ovarian cyst. There is a 6 mm left kidney midzone cyst. INDIVIDUAL DISC LEVELS: L1-L2: The disc is normal in configuration. There is mild facet arthropathy. There is no neuroforaminal stenosis. There is no spinal canal stenosis. L2-L3: The disc is normal in configuration. There is mild facet arthropathy. There is no neuroforaminal stenosis. There is no spinal canal stenosis. L3-L4: Mild disc bulge. There is mild facet arthropathy. There is mild right neuroforaminal stenosis. There is no spinal canal stenosis. L4-L5: Mild disc bulge with likely superimposed small central disc extrusion. There is mild facet arthropathy. There is mild bilateral neuroforaminal stenosis. There is no spinal canal stenosis. L5-S1: Extensive epidural lipomatosis, effacing the thecal sac at L5-S1 and in the sacrum there is mild facet arthropathy. There is no neuroforaminal stenosis. There is severe spinal canal stenosis. IMPRESSION: -- IMPRESSION -- ? ? Postsurgical changes of posterior decompression with L3-L5 left hemilaminectomy. ? ? Mild multi-level degenerative disease in the lumbar spine as detailed above, without substantial neural foraminal or canal stenosis. THIS IS AN ELECTRONICALLY VERIFIED FINAL REPORT 05/19/2024 5:37 PM - Electronically signed by Issac Arnold M.D. WW: MARCOS Report ID: [id number] Reading Location: [place] [address] Social History Type Status Start Date End Date Code Code Syst em Smoking History Never smoker (Never Smoked) 571328736 SNOMED CT Sex Female Assessment You had [...] System ABNORMAL LEVEL OF BLOOD MINERAL active 950010970 SNOMED-CT MAJOR DEPRESSIVE DISORDER, SINGLE EPISODE, SEVERE WITHOUT PSYCHOTIC FEATURES active 40868866 SNOMED-CT ANEMIA, UNSPECIFIED active 700143538 SNOMED-CT AUTOIMMUNE THYROIDITIS active 7282885 4 SNOMED-CT OTHER FATIGUE active 02291434 SNOMED -CT Plan of Treatment Digital Kenny Screen Bilateral (44495) Encounters Encounter Diagnosis Start Date Code Code Sys tem Cervical disc disorder at C6-C7 level with radiculopat hy 05/19/2024 SNOMED-CT Personal Care Team Section Performer Name Performer Role Active Date Inactive Da te Imaging Narrative Notes
--- OUTSIDE RECORDS SUMMARY | 2025-02-28 08:48 | XMS_ITS ---
Author Organization Unknown Address [address] [place] [address] [phone] Phone Care Team Providers Care National Sales Manager Name Role Phone ALKA ALMANZAR Attending Unavailable [...] em Smoking History Never smoker (Never Smoked) 278869077 SNOMED CT Sex Female Assessment You had [...] System ABNORMAL LEVEL OF BLOOD MINERAL active 972939069 SNOMED-CT MAJOR DEPRESSIVE DISORDER, SINGLE EPISODE, SEVERE WITHOUT PSYCHOTIC FEATURES active 46799856 SNOMED-CT ANEMIA, UNSPECIFIED active 085970417 SNOMED-CT AUTOIMMUNE THYROIDITIS active 7547978 4 SNOMED-CT OTHER FATIGUE active 88959212 SNOMED -CT Plan of Treatment Digital Kenny Screen Bilateral (39082) Encounters Encounter Diagnosis Start Date Code Code Sys tem Palpitations 12/08/2023 03271657 SNOMED-CT Personal Care Team Section Performer Name Performer Role Active Date Inactive Da te
--- OUTSIDE RECORDS SUMMARY | 2025-02-28 08:48 | XMS_ITS ---
Author Organization Unknown Address [address] [place] [address] [phone] Phone Care Team Providers Care Talent Acquisition Relationship Manager Name Role Phone RUMA STAFFORD Attending Unavailable [...] em Smoking History Never smoker (Never Smoked) 589751206 SNOMED CT Sex Female Assessment You had [...] System ABNORMAL LEVEL OF BLOOD MINERAL active 882832323 SNOMED-CT MAJOR DEPRESSIVE DISORDER, SINGLE EPISODE, SEVERE WITHOUT PSYCHOTIC FEATURES active 65189355 SNOMED-CT ANEMIA, UNSPECIFIED active 642228497 SNOMED-CT AUTOIMMUNE THYROIDITIS active 2170154 4 SNOMED-CT OTHER FATIGUE active 57474196 SNOMED -CT Plan of Treatment Digital Kenny Screen Bilateral (37738) Encounters Encounter Diagnosis Start Date Code Code Sys tem Cervical radiculopathy 02/01/2024 13824586 SNOME D-CT Personal Care Team Section Performer Name Performer Role Active Date Inactive Da te
--- OUTSIDE RECORDS SUMMARY | 2025-02-28 08:48 | XMS_ITS ---
Author Organization Unknown Address [address] [place] [address] [phone] Phone Care Team Providers Care Aircraft Ordnance Technician Name Role Phone YEN MARTINEZ Attending Unavailable GEOVANNA Fisher Primary Unavailable Immunization Immunization Date Status Additional Notes Code Code System DTP 01/06/1983 Completed CVX DTP 10/12/1984 Completed CVX DTP 02/10/1986 [...] B, adult 09/06/2015 Completed 43 CVX Results URINALYSIS DIPSTICK AUTO AIXA D - Collect Date/Time: 06/25/2024 09:50 [facility] ID: [id number] [place] [address], [phone] LOINC: 31664-7 Test Value Unit Reference Range Code Code System Flag UR SOURCE CLEAN CATCH COLOR YELLOW NORMAL: YELLOW 5778-6 LOINC CLARITY CLEAR NORMAL: CLEAR 10747-1 LOINC SPEC GRAVITY >=1.030 NORMAL: 1.000-1.030 5811-5 LOINC A PH 5.5 NORMAL: 5.0 - 6.5 5803-2 LOINC LEUK EST NEGATIVE NORMAL: NEGATIVE 5799-2 LOINC NITRATE NEGATIVE NORMAL: NEGATIVE PROTEIN NEGATIVE NORMAL: NEGATIVE 5804-0 LOINC GLUCOSE NEGATIVE NORMAL: NEGATIVE 68360-0 LOINC KETONES NEGATIVE NORMAL: NEGATIVE 58849-0 LOINC UROBILINOGEN 0.2 NORMAL: NEGATIVE 5818-0 LOINC BILIRUBIN NEGATIVE NORMAL: NEGATIVE 37849-4 LOINC BLOOD 1+ NORMAL: NEGATIVE 84360-2 LOINC COMPREHENSIVE METABOLIC PANE L - Collect Date/Time: 06/25/2024 09:45 [facility] ID: [id number] [address] [place], [place], [id number] LOINC: 69690-2 Test Value Unit Reference Range Code Code System Flag FASTING NO BUN 14 mg/dL L=7 H=20 3094-0 LOINC CREATININE 0.80 mg/dL L=0.52 H=1.04 2160-0 LOINC GLUCOSE 83 mg/dL L=74 H=106 2345-7 LOINC SODIUM 138 mmol/L L=132 H=144 2951-2 LOINC POTASSIUM 4.1 mmol/L L=3.5 H=5.1 2823-3 LOINC CHLORIDE 101 mmol/L L=98 H=107 2075-0 LOINC CO2 26.0 mmol/L L=22.0 H=30.0 2028-9 LOINC ANION GAP 15 L=10 H=20 72470-1 LOINC OSMOLALITY 286 mOs/kG L=280 H=296 55533-9 LOINC BUN/CREAT 17.5 3097-3 LOINC CALCIUM 9.5 mg/dL L=8.3 H=10.5 90307-5 LOINC AST 35 U/L L=15 H=46 1920-8 LOINC ALT 31 U/L L=9 H=72 1742-6 LOINC ALKALINE PHOS 99 U/L L=38 H=126 6768-6 LOINC TOTAL BILI 0.7 mg/dL L=0.2 H=1.3 1975-2 LOINC ALBUMIN 4.6 G/dL L=3.5 H=5.0 1751-7 LOINC TOTAL PROTEIN 8.1 g/L L=6.3 H=8.2 2885-2 LOINC A/G RATIO 1.3 57863-9 LOINC AGE 44 16086-9 LOINC eGFR NON-AFR 84 ml/min eGFR AFR AMER 102 ml/min CBC W/ DIFF - Collect Date/T soumya: 06/25/2024 09:45 [facility] ID: [id number] [address] [place], [place], [id number] LOINC: 97439-7 Test Value Unit Reference Range Code Code System Flag WBC 9.6 10^3uL L=4.8 H=10.8 RBC 4.49 10^6uL L=4.20 H=5.40 HEMOGLOBIN 15.0 g/dL L=12.0 H=16.0 718-7 LOINC HEMATOCRIT 43.6 VOL% L=37.0 H=47.0 4544-3 LOINC MCV 97.1 fL L=81.0 H=99.0 MCH 33.4 pg L=27.0 H=32.0 H MCHC 34.4 g/dL L=32.0 H=36.0 PLATELETS 229 10^3uL L=100 H=400 25807-5 LOINC RDW 12.5 % L=11.7 H=15.5 %GRAN 64.7 % L=40.0 H=70.0 16944-1 LOINC %LYMPH 24.3 % L=20.0 H=45.0 736-9 LOINC %MONO 7.4 % L=2.0 H=10.0 56820-5 LOINC %EOS 2.5 % L=0.0 H=6.0 713-8 LOINC %BASO 0.7 % L=0.0 H=3.0 706-2 LOINC #NEUT 6.2 10^3uL L=1.9 H=7.6 70959-6 LOINC #LYMPH 2.3 10^3uL L=0.9 H=4.9 35787-2 LOINC #MONO 0.7 10^3uL L=0.1 H=0.9 08097-8 LOINC #EOS 0.2 10^3uL L=0.0 H=0.6 712-0 LOINC #BASO 0.07 10^3uL L=0.00 H=0.10 41605-9 LOINC #IM GRANS 0.0 10^3uL L=0.0 H=7.0 26278-2 LOINC %IM GRANS 0.4 % L=0.0 H=5.0 50873-6 LOINC %NRB 0.0 L=0.0 H=0.2 92838-3 LOINC #NRB 0.000 L=0.000 H=0.012 52783-6 LOINC MANUAL DIFF NOT INDICATED RBC MORPH NOT INDICATED CHEST 2V - Completed: 2023 10:16 LOINC: EXAM DESCRIPTION: CHEST 2V REASON FOR STUDY: pre-op, cervical fusion surgery 07/06. NAD. TECHNIQUE: 2 radiographic view(s) of the chest. COMPARISON: 03/12/2021 FINDINGS: LUNGS: No focal opacity, pleural effusion, or pneumothorax. HEART/MEDIASTINUM: Cardiac silhouette normal in size. Mediastinal and hilar contours appear normal. LINES/TUBES: None. BONES: No acute osseous abnormality. IMPRESSION: No acute cardiopulmonary abnormality. THIS IS AN ELECTRONICALLY VERIFIED FINAL REPORT 06/26/2024 7:37 PM - Electronically signed by Juan Stafford M.D. KT: KT Report ID: [id number] Reading Location: [place] [address] Social History Type Status Start Date End Date Code Code Syst em Smoking History Never smoker (Never Smoked) 487572441 SNOMED CT Sex Female Assessment You had [...] System ABNORMAL LEVEL OF BLOOD MINERAL active 327057797 SNOMED-CT MAJOR DEPRESSIVE DISORDER, SINGLE EPISODE, SEVERE WITHOUT PSYCHOTIC FEATURES active 56487153 SNOMED-CT ANEMIA, UNSPECIFIED active 382484316 SNOMED-CT AUTOIMMUNE THYROIDITIS active 7195200 4 SNOMED-CT OTHER FATIGUE active 30473303 SNOMED -CT Plan of Treatment Digital Kenny Screen Bilateral (70886) Encounters Encounter Diagnosis Start Date Code Code Sys tem Encounter for other preprocedural examination 06/25/20 SNOMED-CT Personal Care Team Section Performer Name Performer Role Active Date Inactive Da te Imaging Narrative Notes
--- OUTSIDE RECORDS SUMMARY | 2025-02-28 08:48 | XMS_ITS ---
Author Organization Unknown Address [address] [place] [address] [phone] Phone Care Team Providers Care Cable Splicer Name Role Phone YEN MARTINEZ Attending Unavailable [...] em Smoking History Never smoker (Never Smoked) 720700090 SNOMED CT Sex Female Assessment You had [...] System ABNORMAL LEVEL OF BLOOD MINERAL active 886433631 SNOMED-CT MAJOR DEPRESSIVE DISORDER, SINGLE EPISODE, SEVERE WITHOUT PSYCHOTIC FEATURES active 33601074 SNOMED-CT ANEMIA, UNSPECIFIED active 127554998 SNOMED-CT AUTOIMMUNE THYROIDITIS active 8595530 4 SNOMED-CT OTHER FATIGUE active 60782394 SNOMED -CT Plan of Treatment Digital Kenny Screen Bilateral (85324) Encounters Encounter Diagnosis Start Date Code Code Sys tem Hypersomnia 08/23/2024 82157807 SNOMED-CT Personal Care Team Section Performer Name Performer Role Active Date Inactive Da te Procedures Notes [facility] 08/28/2024 22:06 STUDY TYPE: Unattended Sleep Study ATTENDING PROVIDER: JUAN BARLOW DICTATING PROVIDER: [facility] PROCEDURE DATE: 08/23/2024 READING DATE: 08/28/2024 INDICATION FOR THE STUDY: Snoring. PATIENT DEMOGRAPHIC: A 44-year-old female, weight 158 Lbs, height 65 in and BMI of 26.3 lb/in2. METHODS: Unattended Sleep Study was performed using a type III, 7 channel portable monitoring device ([employer]) with simultaneous recording of nasal flow, respiratory effort, snoring, body position, plethysmography, ECG/heart rate and oxygen saturation. FINDINGS: Sleep Summary: Total recording time 440 min. Total time in bed 440 min. Monitoring time 396 min. Cardiac Summary: Average heart rate was 65 BPM; highest heart rate was 101 BPM and lowest HR was 53 BPM. Oximetry saturation: average oxygen saturation was 96%, total number of desaturation was 8, desaturation index was 1 events/hr, lowest oxygen saturation was 91% and highest oxygen saturation was 99%. Respiratory summary: Patient had 14 obstructive apneas, 5 obstructive hypopneas, 23 central apnea and the total number of events was 21 events. AHI was 3.2. IMPRESSION: AHI of 3.2, consistent with no significant sleep disordered breathing. RECOMMENDATIONS: Severity of obstructive sleep apnea can be underestimated by home sleep apnea test; in lab PSG is recommended if there is high suspicion of sleep disordered breathing. General recommendation: Upper airway assessment for any anatomic narrowing or abnormal nasal passages or enlarged tonsils. Assessment of Thyroid function. Education about sleep apnea. Exercise regularly and work to lose weight if you are overweight. Avoid alcohol and other sedatives, particularly prior to sleep. Patient to avoid driving or operating heavy machinery until symptoms of excessive daytime sleepiness are controlled. If you smoke, quit smoking. Cigarette smoking can increase swelling in your airway making snoring and VIOLET worse. Have a sleep routine. Close follow up with your physician. Vick Villalta MD DIPLOMATE, [facility] BOARD OF SLEEP MEDICINE
--- OUTSIDE RECORDS SUMMARY | 2025-02-28 08:49 | XMS_ITS ---
Author Organization Unknown Address [address] [place] [phone] Phone Care Team Providers Care Paper Machine Operator Name Role Phone RUMA STAFFORD Attending Unavailable [...] em Smoking History Never smoker (Never Smoked) 392268628 SNOMED CT Sex Female Assessment You had [...] System ABNORMAL LEVEL OF BLOOD MINERAL active 648553541 SNOMED-CT MAJOR DEPRESSIVE DISORDER, SINGLE EPISODE, SEVERE WITHOUT PSYCHOTIC FEATURES active 42313450 SNOMED-CT ANEMIA, UNSPECIFIED active 679591419 SNOMED-CT AUTOIMMUNE THYROIDITIS active 9598932 4 SNOMED-CT OTHER FATIGUE active 38541764 SNOMED -CT Plan of Treatment Digital Kenny Screen Bilateral (05995) Encounters Encounter Diagnosis Start Date Code Code Sys tem Cervical radiculopathy 01/26/2024 49656695 SNOME D-CT Personal Care Team Section Performer Name Performer Role Active Date Inactive Da te
--- OUTSIDE RECORDS SUMMARY | 2025-02-28 08:49 | XMS_ITS | Clinical Summary ---
Author Organization [facility] Address [facility] [place] [address] Care Team Providers Care Anesthesiologist Assistant Certified Name Role Phone Kyle Ash MD Primary Care Provider Allergies Active Allergy Reactions Criticality Noted Date Comments Tape Rash Low 07/06/2024 Metronidazole Diarrhea 07/06/2024 Sulfa Antibiotics Unknown 06/28/2024 From when she was an Medications Bacillus Coagulans-Inuli n (ALIGN PREBIOTIC-PROBI OTIC) 5-1.25 MG-GM Chew Tab Chew 1 capsule by mouth daily. Active atorvastatin (LIPITOR) 20 MG tablet Take 1 tablet (20 mg total) by mouth nightly at bedtime. Active azelastine (ASTELIN) 0.1 % nasal spray 1 spray by Nasal route 2 (two) times daily. Use in each nostril as directed Active famotidine (PEPCID) 40 MG tablet Take 1 tablet (40 mg total) by mouth nightly as needed for Heartburn. Active fluticasone propionate (FLONASE) 50 MCG/ACT nasal spray 2 sprays by Nasal route daily as needed. Active levothyroxine (SYNTHROID) 25 MCG tablet Take 1 tablet (25 mcg total) by mouth every morning. Active levonorgestrel (MIRENA, 52 MG,) 20 MCG/DAY IUD 1 Intra Uterine Device by Intrauterine route once. Active atogepant (QULIPTA) tablet Take 1 tablet (60 mg total) by mouth daily. Active rizatriptan (MAXALT) 10 MG tablet Take 1 tablet (10 mg total) by mouth as needed for Migraine. May repeat in 2 hours if needed Active Plecanatide (TRULANCE) 3 MG Tab Take 3 mg by mouth daily. Active Vonoprazan Fumarate (VOQUEZNA) 20 MG Tab Take 20 mg by mouth every morning. Active methylPREDNISol one, MAYRA, (MEDROL DOSEPAK) 4 MG tablet Follow package directions 1 each 4 Active HYDROcodone-irene taminophen (NORCO) 5-325 MG tabletIndicatio ns:Acute Pain < 7 Day Supply Take 1-2 tablets by mouth every 4 (four) hours as needed. Indications: Acute Pain < 7 Day Supply 30 tablet 4 Active senna-docusate (SENOKOT-S) 8.6-50 MG tablet Take 1 tablet by mouth 2 (two) times daily. 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 No 07/06/2024 Humiliation, Afraid, Rape, and Kick questionnair e Answer Date Recorded Within the last year, have y ou been afraid of your partner or ex-partner? No 07/06/2024 Within the last year, have y ou been humiliated or emotionally abused in other ways by your partner or ex-partner? No Within the last year, have y ou been kicked, hit, slapped, or otherwise physically hurt by your partner or ex-partner? No 07/06/2024 Within the last year, have y ou been raped or forced to have any kind of sexual activity by your partner or ex-partner? No 07/06/2024 Overall Financial Resource Strain (CARDIA) Answe r Date Recorded How hard is it for you to pa y for the very basics like food, housing, medical care, and heating? Not hard at all 07/06/2024 Hunger Vital Sign Answer Date Recorded Within the past 12 months, y ou worried that your food would run out before you got the money to buy more. Never true 07/06/20 24 Within the past 12 months, t he food you bought just didn't last and you didn't have money to get more. Never true 07/06/2024 PRAPARE - Transportation Answer Date Re corded In the past 12 months, has l ack of transportation kept you from medical appointments or from getting medications? No 02/2024 In the past 12 months, has l ack of transportation kept you from meetings, work, or from getting things needed for daily living? No 07/06/2024 Housing Stability Vital Sign Answer Marcelo e Recorded In the last 12 months, was t here a time when you were not able to pay the mortgage or rent on time? No 07/06/2024 In the past 12 months, how m any times have you moved where you were living? 0 07/06/2024 At any time in the past 12 m [facility], were you homeless or living in a [facility] (including now)? No 07/06/2024 Comments Unknown Sex and Gender Information Value Date Recorded Sex Assigned at Not on file Legal Sex Female 8:50 PM CDT Gender Identity Not on file Sexual Orientation Not on file Last Filed Vital Signs Vital Sign Reading Time Taken Comments Blood Pressure 109/70 07/07/2024 8:01 AM CDT Pulse 66 07/07/2024 8:01 AM CDT Temperature 36.8 C (98.2 F) 07/07/2024 8:01 AM CDT Respiratory Rate 16 07/07/2024 8:01 AM CDT Oxygen Saturation 95% 07/07/2024 8:01 AM CDT Inhaled Oxygen Concentration - - Weight 72.6 kg (160 lb) 07/06/2024 5:30 PM CDT Height 165.1 cm (5' 5 ) 07/06/2024 5:30 PM CDT Body Mass Index 26.63 07/06/2024 5:30 PM CDT Plan of Treatment Health Maintenance Due Date Last Done Comments Annual Physical 1985 DTaP, Tdap and Td Vaccines (5 - Tdap) 07/23/1997 07/22/1997, 02/16/1987, 02/10/1986, Additional history exists Hepatitis C 2000 Cervical Cancer Screening Pap with HPV Testing (Age 30 to 64) Every 5 Years 2012 Mammogram Screening 2022 Cervical Cancer Screening Pap Smear (Age 30 to 64) Every 3 Years 06/14/2023 06/14/2020 Cervical Cancer Screening with HPV 06/14/2023 COVID-19 Vaccine ( season) 2024 Hepatitis B Vaccines Completed 09/06/2015, 04/05/2015, 03/08/2015 HPV Vaccines Aged Out No longer eligi ble based on patient's age to complete this topic Meningococcal B Vaccine Aged Out No l onger eligible based on patient's age to complete this topic Meningococcal Vaccine Aged Out No [place] a[place] eligible based on patient's age to complete this topic Pneumococcal Vaccine: Pediatrics (0 to 5 Years) and At-Risk Patients (6 to 49 Years) Aged Out No longer eligible based on patient's age to complete this topic RSV Immunizations Under 20 Months Aged Out No longer eligible based on patient's age to complete this topic Medical Devices Implanted Type Area Kettle Tender Device Identifier Shelf Expiration Date Model / Serial / Lot Graft Bone Xavier Putty Dbm 1.0ml - [id number] Implanted:Qty: 1 on 07/06/2024 by Kyle Sanon MD at [facility] Bone Left: Spine Cervical [employer] [id number] 02/25/2027 [id number] / [id number] / N/A Strut Center Medtronic 6mm X 14mm X 11mm - [id number] Implanted:Qty: 1 on 07/06/2024 by Kyle Sanon MD at [facility] Cage [employer] [id number] 10/11/2027 [id number] / / [id number] Hemostatic Surgiflo 8 Ml Kit - [id number] Implanted:Qty: 1 on 07/06/2024 by Kyle Sanon MD at [facility] Sealant Left: Spine Cervical [employer] [id number] 01/30/2025 [id number] / / [id number] Screw Implanted:Qty: 3 on 07/06/2024 by Kyle Sanon MD at [facility] N/A: Spine Cervical [employer] N/A [id number] / / N/A Verte-Stack Implanted:Qty: 1 on 07/06/2024 by Kyle Sanon MD at [facility] Left: Spine Cervical [employer] N/A 06/02/2028 [id number] / / [id number] Verte-Stack End Cap Implanted:Qty: 1 on 07/06/2024 by Kyle Sanon MD at [facility] Left: Spine Cervical [employer] [id number] 12/23/2025 [id number] / / [id number] Screw Implanted:Qty: 1 on 07/06/2024 by Kyle Sanon MD at [facility] N/A: Spine Cervical [employer] N/A [id number] / / N/A Plate Implanted:Qty: 1 on 07/06/2024 by Kyle Sanon MD at [facility] N/A: Spine Cervical [employer] N/A [id number] / / N/A Explanted Type Area Kettle Tender Device Identifier Shelf Expiration Date Model / Serial / Lot Drill Bit Medtronic - [id number] Explanted:Qty: 1 on 07/06/2024 by Kyle Sanon MD at [facility] Drill Left: Spine Cervical [employer] [id number] 03/13/2029 [id number] / / [id number] Screw Explanted:Qty: 3 on 07/06/2024 at [facility] N/A: Spine Cervical [employer] N/A [id number] / / N/A Procedures Procedure Name Priority Date/Time Associated Diagnosis Comments CYTOPATH CERV/VAG THIN LAYER Routine 06/14/2020 9:11 AM CDT from Last 3 Months or Most Recently Relevant to Health Maintenance Results * Cytopath Cerv/Vag Thin Layer (06/14/2020 9:11 AM CDT) THIN PREP PAP [address] [place] [address] Department of Pathology Pathology Report CERVICAL/VAGINAL PAP SMEAR REPORT Name: JOSETTE CARCAMO Age: 7 1980 (Age: 40) Location: [facility] Sex: F Collected Date: 06/14/2020 Hospital #: [id number] Date Received: 06/19/2020 Date Reported: 06/22/2020 Provider: CECILIO CHEEMA MD MPH D EMMA BULLOCK MD INTERPRETATION CERVICAL/ENDOCERVI ALIZA: SATISFACTORY FOR EVALUATION. ENDOCERVICAL/TRANS FORMATION ZONE COMPONENT ABSENT. NEGATIVE FOR INTRAEPITHELIAL LESION OR MALIGNANCY. NEGATIVE FOR HIGH RISK HPV. The FDA approved Aptima HPV assay is an in vitro nucleic acid amplification test for the qualitative detection of E6/E7 viral messenger RNA (mRNA) from 14 high-risk types of human papillomavirus (HPV) in cervical specimens. The high-risk HPV types detected by the assay include: 16,18,31,33,35,39, 45,51,52,56,58,59, 66, and 68. Electronically Signed Out By MELISSA Nayak (ASCP) CLINICAL HISTORY Z12.4 PAP AND PLASTICS PATTERNMAKER SURGICAL HISTORY-UNKNOWN ThinPrep Pap Test with screening HR HPV testing requested, with reflex HPV 16/18 genotyping on negative cytology, positive HR HPV Date of Last Menstrual Period: UNKNOWN Menstrual Status: Irregular Contraceptive History: IUD SPECIMEN SUBMITTED CERVICAL/ENDOCERVI ALIZA Specimen Received:1 Thin Prep Vial, Image Assisted Pap (SMD) Please note: The Pap smear is not a diagnostic test. It is a screening test. Negative results on combined screening (Pap test and HPV-DNA) have a high negative predictive value (99.1-100 percent) for cervical cancer. The pap test is not effective in detecting cervical adenocarcinoma. [facility] ([facility] 06/14/2020 9:11 AM CDT 06/19/2020 9:11 AM CDT Comment:CERVICAL/ENDOCERVICA L us Cecilio Cheema MD MPH PATHOLOGY/CYTOLOGY ORDERA BLES Final Result [facility] (D) [facility] [address] [place] [id number], from Last 3 Months or Most Recently Relevant to Health Maintenance Insurance [employer] Advance Directives * Full Code (Latest Code Status on File) Date Activated Date Inactivated Comments 07/07/2024 9:38 AM 07/07/2024 1:04 PM Care Teams Anesthesiologist Assistant Certified Relationship Specialty Start Date End Date Kyle Ash MD [address] [place] [address] PCP - General FAMILY PRACTICE 09/24/21
--- NOTE | 2025-02-28 11:00 | NEURO_ITS ---
Impression: # Complains of intermittent shooting pains. History of neck and back surgeries. ? # Normal Nerve Conduction Study except absent right peroneal F- wave. ? # Absent F-wave could be related to back surgery. ? # No Carpal Tunnel Syndrome or ulnar neuropathy. ? # Clinical correlation recommended. Nerve Conduction Studies Anti Sensory Summary Table ?Stim Site NR Peak (ms) P-T Amp (?V) Site1 Site2 Delta-P (ms) Dist (cm) Jules (m/s) Left Median Anti Sensory (2-3nd Digit) Wrist ? 2.4 93.8 Wrist 2-3nd Digit 2.4 14.0 58 Wrist ? 2.4 82.9 Wrist 2-3nd Digit 2.4 14.0 58 Left Radial Anti Sensory (Base 1st Digit) Wrist ? 1.7 39.2 Wrist Base 1st Digit 1.7 0.0 Left Sup Fibular Anti Sensory (Ant Lat Mall) 14 cm ? 2.7 18.0 14 cm Ant Lat Mall 2.7 16.0 59 Right Sup Fibular Anti Sensory (Ant Lat Mall) 14 cm ? 2.9 19.2 14 cm Ant Lat Mall 2.9 16.0 55 Left Sural Anti Sensory (Lat Mall) Calf ? 3.0 17.0 Calf Lat Mall 3.0 16.0 53 Right Sural Anti Sensory (Lat Mall) Calf ? 3.0 9.1 Calf Lat Mall 3.0 16.0 53 Left Ulnar Anti Sensory (5th Digit) Wrist ? 2.3 87.3 Wrist 5th Digit 2.3 14.0 61 Motor Summary Table ?Stim Site NR Onset (ms) O-P Amp (mV) Site1 Site2 Delta-0 (ms) Dist (cm) Jules (m/s) Left Median Motor (Abd Poll Brev) Wrist ? 2.5 6.0 Elbow Wrist 4.1 27.0 66 Elbow ? 6.6 5.0 Left Peroneal Motor (Vastus Med) Ankle ? 3.6 1.5 Popit Ankle 8.0 42.0 53 Popit ? 11.6 0.5 Right Peroneal Motor (Vastus Med) Ankle ? 3.9 2.8 Popit Ankle 8.5 41.0 48 Popit ? 12.4 2.8 Left Tibial Motor (Abd Forman Brev) Ankle ? 4.0 7.3 Knee Ankle 8.5 42.0 49 Knee ? 12.5 4.8 Right Tibial Motor (Abd Forman Brev) Ankle ? 3.8 10.3 Knee Ankle 8.4 41.0 49 Knee ? 12.2 6.8 Left Ulnar Motor (Abd Dig Minimi) Wrist ? 2.3 7.4 A Elbow Wrist 4.3 28.0 65 A Elbow ? 6.6 8.4 F Wave Studies ?NR F-Lat (ms) L-R F-Lat (ms) Left Median (Mrkrs) (Abd Poll Brev) ? 26.33 Left Peroneal (Mrkrs) (EDB) ? 50.00 Right Peroneal (Mrkrs) (EDB)??? NO RESPONSE NR Left Tibial (Mrkrs) (Abd Hallucis) ? 49.03 2.89 Right Tibial (Mrkrs) (Abd Hallucis) ? 51.92 2.89 Left Ulnar (Mrkrs) (Abd Dig Min) ? 26.24 MTDD
== END 2025-02-28 08:28 | disposition home or self-care (01) ==
PROVIDERS: PCP Family Medicine; Visit Provider Family Medicine
DX: R20.2 Paresthesia of skin (principal)
CPT/HCPCS: 95913

== ENCOUNTER 2025-07-31 12:33 | Outpatient (CLI) | payer OTHER, SELFPAY ==
--- OUTSIDE RECORDS SUMMARY | 2025-07-31 12:36 | XMS_ITS | Clinical Summary ---
Author Organization [facility] Address [address] [place] [address] Care Team Providers Care Fixed Route Operator Name Role Phone Jarred Luis MD Primary Care Provider [phone] Source Comments [facility],non-owned Affiliates and Associated Physician Practices is amultiple site organization consisting of ambulatory clinics and hospital sitesin [place], [place], [place] and [place]. This disclosure is being madepursuant to the Care Everywhere program and may not contain all information available regarding this patient. Last updated 18.[facility] [employer] Allergies Active Allergy Reactions Criticality Noted Date [...] 11:15 AM CDT Height 167.6 cm (5' 6) 06/17/2018 11:15 AM CDT Body Mass Index 24.45 06/17/2018 11:15 AM CDT Plan of Treatment Health Maintenance Due Date Last Done Comments LIPID TESTING 1982 MAMMOGRAM 1982 HIV SCREENING 1997 HEPATITIS C SCREENING 05/09/2000 DTAP/TDAP/TD VACCINES (1 - Tdap) 2001 HEPATITIS B VACCINE (1 of 3 - 19+ 3-dose series) 2001 HPV VACCINE (1 - 3-dose SCDM series) 2009 DEPRESSION SCREENING 11/02/2024 COVID-19 VACCINE (1 - 2023-2 5 season) 2025 INFLUENZA VACCINE (#1) 2025 ZOSTER VACCINE (1 of 2) 2032 [...] this topic Insurance [employer] Care Teams Fixed Route Operator Relationship Specialty Start Date End Date Jarred Luis MD [address] [place] [phone] PCP - General 06/02/18
--- OUTSIDE RECORDS SUMMARY | 2025-07-31 12:36 | XMS_ITS | Clinical Summary ---
Author Organization [facility] Address [facility] [place] [address] Care Team Providers Care Laborer Wrecking And Salvaging Name Role Phone Kyle Ash MD Primary Care Provider Allergies Active Allergy Reactions Criticality Noted Date Comments Tape Rash Low 07/06/2024 Metronidazole Diarrhea 07/06/2024 Sulfa Antibiotics Unknown 06/28/2024 From when she was an infant Medications Bacillus Coagulans-Inuli n (ALIGN PREBIOTIC-PROBI OTIC) [...] drink = 0.6 oz pur e alcohol) [facility] Utilities Answer Date Recorded In the past 12 months has [facility] [employer], gas, oil, or water [employer] threatened to shut off services in your [...] any time in the past 12 m [facility], were you homeless or living in a retirement (including now)? No 07/06/2024 Comments Unknown Sex [...] 5:30 PM CDT Height 165.1 cm (5' 5) 07/06/2024 5:30 PM CDT Body Mass Index 26.63 07/06/2024 5:30 PM CDT Plan of Treatment Health Maintenance Due Date Last Done Comments Annual Physical 1985 DTaP, Tdap and Td Vaccines (5 - Tdap) 07/23/1997 07/22/1997, 02/16/1987, 02/10/1986, Additional history exists Hepatitis C 2000 HPV Vaccines (1 - 3-dose SCDM series) 2009 Cervical Cancer Screening Pap with HPV Testing (Age 30 to 64) Every 5 Years 2012 Mammogram Screening 2022 Cervical Cancer Screening Pap Smear (Age 30 to 64) Every 3 Years 06/14/2023 06/14/2020 Cervical Cancer Screening with HPV 06/14/2023 COVID-19 Vaccine ( season) 2025 Hepatitis B Vaccines Completed 09/06/2015, 04/05/2015, 03/08/2015 Meningococcal B Vaccine Aged Out No l [...] this topic Medical Devices Implanted Type Area Supervisor Trust Accounts Device Identifier Shelf Expiration Date Model / Serial / Lot Graft [place] [employer] Putty Dbm 1.0ml - [id number] Implanted:Qty: 1 on 07/06/2024 by Kyle Sanon MD at [facility] Bone Left: Spine Cervical [employer] [id number] 02/25/2027 [id number] / [id number] / N/A Strut Center Medtronic 6mm X 14mm X 11mm - [id number] Implanted:Qty: 1 on 07/06/2024 by Kyle Sanon MD at [facility] Cage [employer] [id number] 10/11/2027 [id number] / / [id number] Hemostatic Surgiflo 8 Ml Kit - [id number] Implanted:Qty: 1 on 07/06/2024 by Kyle Sanon MD at [facility] Sealant Left: Spine Cervical [employer] [id number] 01/30/2025 [id number] / / [id number] Screw Implanted:Qty: 3 on 07/06/2024 by Kyle Sanon MD at [facility] N/A: Spine Cervical [employer] N/A [id number] / / N/A Verte-Stack Implanted:Qty: 1 on 07/06/2024 by Kyle Sanon MD at [facility] Left: Spine Cervical [employer] N/A 06/02/2028 [id number] / / [id number] Verte-Stack End Cap Implanted:Qty: 1 on 07/06/2024 by Kyle Sanon MD at [facility] Left: Spine Cervical [employer] [id number] 12/23/2025 [id number] / / [id number] Screw Implanted:Qty: 1 on 07/06/2024 by Kyle Sanon MD at [facility] N/A: Spine Cervical [employer] N/A [id number] / / N/A Plate Implanted:Qty: 1 on 07/06/2024 by Kyle Sanon MD at [facility] N/A: Spine Cervical [employer] N/A [id number] / / N/A Explanted Type Area Supervisor Trust Accounts Device Identifier Shelf Expiration Date Model / Serial / Lot Drill Bit Medtronic - [id number] Explanted:Qty: 1 on 07/06/2024 by Kyle Sanon MD at [facility] Drill Left: Spine Cervical [employer] [id number] 03/13/2029 [id number] / / [id number] Screw Explanted:Qty: 3 on 07/06/2024 at [facility] N/A: Spine Cervical [employer] N/A [id number] / / N/A Procedures Procedure Name Priority Date/Time Associated Diagnosis Comments CYTOPATH CERV/VAG THIN LAYER Routine 06/14/2020 9:11 AM CDT from Last 3 Months or Most Recently Relevant to Health Maintenance Results * Cytopath Cerv/Vag Thin Layer (06/14/2020 9:11 AM CDT) THIN PREP PAP [address] [id number] Department of Pathology Pathology Report CERVICAL/VAGINAL PAP SMEAR REPORT Name: JOSETTE CARCAMO Age: 7 1980 (Age: 40) Location: [facility] Sex: F Collected Date: 06/14/2020 [facility] #: [id number] Date Received: 06/19/2020 Date Reported: 06/22/2020 Provider: [...] Nayak (ASCP) CLINICAL HISTORY Z12.4 PAP AND TARE WEIGHER SURGICAL HISTORY-UNKNOWN ThinPrep Pap Test with screening [...] is not effective in detecting cervical adenocarcinoma. [facility] ([facility] 06/14/2020 9:11 AM CDT 06/19/2020 9:11 AM CDT Comment:CERVICAL/ENDOCERVICA L us Cecilio Cheema MD MPH PATHOLOGY/CYTOLOGY ORDERA BLES Final Result [facility] () [facility] [address] [place] [address], from Last 3 Months or Most Recently Relevant to Health Maintenance Insurance [facility] Advance Directives * Full Code (Latest Code Status on File) Date Activated Date Inactivated Comments 07/07/2024 9:38 AM 07/07/2024 1:04 PM Care Teams Laborer Wrecking And Salvaging Relationship Specialty Start Date End Date Kyle Ash MD [address] [place] [phone] PCP - General FAMILY PRACTICE 09/24/21
--- OUTSIDE RECORDS SUMMARY | 2025-07-31 12:36 | XMS_ITS | Clinical Summary ---
Author Organization [facility] [address] [place] [id number] Care Team Providers Care Clinical Trials Manager Name Role Phone Kyle Ash MD Primary Care Provider Allergies Active Allergy Reactions Criticality Noted Date Comments Penicillins Diarrhea Low 06/17/2018 Sulfasalazine Unknown 06/17/2018 Medications levonorgestrel (MIRENA) IUD 1 each by intrauterine route Active LORazepam (ATIVAN) 0.5 mg tablet 3 Active rizatriptan (MAXALT) 10 mg tabletIndicatio ns:Migraine Take one tablet po q2h as needed as soon as feel headache is coming. Do not take more then 2 tablets in 24 hours. 9 tablet 11 3 Active azelastine (ASTELIN) 137 mcg (0.1 %) nasal spray Administer 1 spray into each nostril 3 Active fluticasone propionate (FLONASE) 50 mcg/actuation nasal spray Administer 1 spray into each nostril 3 Active norethindrone-e .estradioL-iron (JUNEL FE 11/21) 1 mg-20 mcg (21)/75 mg (7) per tablet 5 Active levothyroxine (SYNTHROID) 25 mcg tablet Take 1 tablet (25 mcg total) by mouth silk winding machine operator before breakfast Active topiramate (TOPAMAX) 50 mg tabletIndicatio ns:Migraine with aura and without status migrainosus, not intractable TAKE 1 TABLET BY MOUTH TWICE A DAY 60 tablet 5 5 Active buPROPion (WELLBUTRIN) 100 mg tablet Take 30 mg by mouth 2 (two) times a day 5 Active dextroamphetami ne-amphetamine (ADDERALL) 10 mg tablet Take 1 tablet (10 mg total) by mouth 2 (two) times a day 5 Active traZODone (DESYREL) 50 mg tablet Take 1 tablet (50 mg total) by mouth nightly 5 Active galcanezumab-gn lm (Emgality Pen) 120 mg/mL pen injector INJECT 120MG (1 PEN) UNDER SKIN ONCE MONTHLY PA APPROVED FOR THIS [facility] ONLY, [address]-52 1 mL 11 5 Active Active Problems Problem Noted Date Diagnosed [...] Hold T3 Recheck levels in 2-3 weeks. Encounters Date Type Department Care Team Description 07/12/2025 12:26 PM CDT - 07/12/2025 11:59 PM CDT Hospital Encounter [facility] [address] [place] [address] Pineal gland, tumor Discharge Disposition: Discharge to home or self care 06/19/2025 Telephone [facility] [address] [facility] [address] [place] [address] Elias Bobby MD 06/16/2025 11:30 AM CDT Office Visit [facility] [address] [place] [address] [address] [place] [address] Elias Bobby MD Chronic migraine without aura without status migrainosus, not intractable (Primary Dx); Pineal gland, tumor from Last 3 Months Surgical History Surgery Date Site/Laterality Comments FL [...] Sign Reading Time Taken Comments Blood Pressure 110/65 06/16/2025 11:55 AM CDT Pulse 81 06/16/2025 11:55 AM CDT Temperature 36.3 C (97.4 F) 01/07/2019 11:00 AM RAM PRESS OPERATOR Respiratory Rate 18 11/29/2024 1:17 PM RAM PRESS OPERATOR Oxygen Saturation 100% 06/16/2025 11:55 AM CDT Inhaled Oxygen Concentration - - Weight 71.7 kg (158 lb) 06/16/2025 11:55 AM CDT Height 165.1 cm (5' 5) 06/16/2025 11:55 AM CDT Body Mass Index 26.29 06/16/2025 11:55 AM CDT Plan of Treatment Health Maintenance Due Date Last Done Comments Breast Cancer Screening-Mammogram 1982 Hepatitis C Screening 1982 Varicella Vaccines (1 of 2 - 13+ 2-dose series) 1995 DTaP/Tdap/Td Vaccine (5 - Tdap) 07/23/1997 07/22/1997, 02/16/1987, 02/10/1986, Additional history exists Regular Well Visit/Exam 18-64 2000 HPV Vaccines (1 - 3-dose SCDM series) 2009 Depression Screening 08/17/2019 08/17/2018 Cervical Cancer Screening 06/14/2021 06/14/2020 Influenza Vaccine (#1) 2025 Hepatitis B Screening Completed 09/06/2015 , 04/05/2015, 03/08/2015 Pneumococcal vaccine <65 Aged Out No longer eligible based on patient's age to complete this topic Procedures Procedure Name Priority Date/Time Associated Diagnosis Comments MRI BRAIN W WO CONTRAST Schedule BENJAMÍN, Read Routine (Patient lives out of area) 07/12/2025 1:17 PM CDT Pineal gland, tumor from Last 3 Months Results * MRI Brain W WO Contrast (07/12/2025 1:17 PM CDT) Anatomical Region Laterality Modality Head and Neck N/A Magnetic Resonan ce 07/12/2025 1:29 PM CDT Narrative 07/12/2025 1:54 PM CDT EXAM DESCRIPTION: MRI BRAIN W WO CONTRAST REASON FOR STUDY: pineal cyst 2019 discovered a 7 mm pineal cyst following up again with mri TECHNIQUE: Multiplanar imaging includes noncontrast T1, T2, FLAIR, diffusion with ADC map and post contrast T1 sequences. Additional sequence(s) sensitive to blood products. Images stored on PACS. CONTRAST TYPE/DOSE: 14mL of GADOTERATE MEGLUMINE 0.5 MMOL/ML INTRAVENOUS SOLUTION (SO) injected via intravenous COMPARISON: 12/27/2018 FINDINGS: CEREBRUM: No hemorrhage, edema, or mass effect. Pineal cyst measures 10 x 9 by 7 mm, previously 9 x 7 by 5 mm on 12/27/2018. FLAIR signal within the cyst has increased compared to 2019; this could be related to differences in technique or blood products or proteinaceous products within the cyst. No suspicious enhancement of the cyst is seen. No suspicious enhancement elsewhere in the brain. WHITE MATTER: Few scattered T2/FLAIR signal hyperintensity are not substantially changed from 12/27/2018 and nonspecific POSTERIOR FOSSA: Brainstem and cerebellum appear unremarkable. No abnormal enhancement. DIFFUSION IMAGING: No recent infarction. EXTRAAXIAL SPACES: No hemorrhage. No mass or abnormal enhancement. BRAIN VOLUME: Within normal limits for age. PITUITARY: Unremarkable. VASCULATURE: No flow disturbance identified. ORBITS: No masses. Globes normal. PARANASAL SINUSES AND MASTOIDS: Moderate left maxillary and mild ethmoid sinus mucosal thickening and mild left frontal sinus mucosal thickening. Trace fluid signal in the right mastoid air cells. OTHER: No other significant finding. IMPRESSION: Mild increase in size of a pineal cyst since 12/27/2018. FLAIR signal within the cyst has increased compared to 2019; this could be related to differences in technique or blood products/proteinaceous products within the cyst. No suspicious enhancement of the cyst is seen. THIS IS AN ELECTRONICALLY VERIFIED FINAL REPORT 07/12/2025 1:54 PM - Electronically signed by Saleem Caballero M.D. MZ: AMARILYS Report ID: [id number] Reading Location: [id number] Procedure Note Saleem Caballero MD - 07/12/2025 EXAM DESCRIPTION: MRI BRAIN W WO CONTRAST REASON FOR STUDY: pineal cyst 2018 discovered a 7 mm pineal cyst following up again with mri TECHNIQUE: Multiplanar imaging includes noncontrast T1, T2, FLAIR,diffusion with ADC map and post contrast T1 sequences. Additional sequence(s)sensitive to blood products. Images stored on PACS. CONTRAST TYPE/DOSE: 14mL of GADOTERATE MEGLUMINE 0.5 MMOL/ML INTRAVENOUS SOLUTION (SO) injected via intravenous COMPARISON: 12/27/2018 FINDINGS: CEREBRUM: No hemorrhage, edema, or mass effect. Pineal cyst x 9 by 7 mm, previously 9 x 7 by 5 mm on 12/27/2018. FLAIR signal withinthe cyst has increased compared to 2019; this could be related to differencesin technique or blood products or proteinaceous products within the cyst. No suspicious enhancement of the cyst is seen. No suspicious enhancement elsewhere in the brain. WHITE MATTER: Few scattered T2/FLAIR signal hyperintensity are not substantially changed from 12/27/2018 and nonspecific POSTERIOR FOSSA: Brainstem and cerebellum appear unremarkable. Noabnormal enhancement. DIFFUSION IMAGING: No recent infarction. EXTRAAXIAL SPACES: No hemorrhage. No mass or abnormal enhancement. BRAIN VOLUME: Within normal limits for age. PITUITARY: Unremarkable. VASCULATURE: No flow disturbance identified. ORBITS: No masses. Globes normal. PARANASAL SINUSES AND MASTOIDS: Moderate left maxillary and mild ethmoid sinus mucosal thickening and mild left frontal sinus mucosal thickening. Trace fluid signal in the right mastoid air cells. OTHER: No other significant finding. IMPRESSION: Mild increase in size of a pineal cyst since 12/27/2018. FLAIR signalwithin the cyst has increased compared to 2019; this could be related todifferences in technique or blood products/proteinaceous products within the cyst. No suspicious enhancement of the cyst is seen. THIS IS AN ELECTRONICALLY VERIFIED FINAL REPORT 07/12/2025 1:54 PM - Electronically signed by Saleem Caballero M.D. MZ: AMARILYS Report ID: [id number] Reading Location: [id number] Elias Bobby MD IMG MRI PROCEDURES Charu josh Result from Last 3 Months Insurance [facility] Care Teams Clinical Trials Manager Relationship Specialty Start Date End Date Kyle Ash MD PCP - General Family Medicine 06/10/23
--- OUTSIDE RECORDS SUMMARY | 2025-07-31 12:36 | XMS_ITS | Encounter Summary ---
Author Organization [facility] Address [facility] [place] [address] Care Team Providers Care Human Resources Generalist Name Role Phone Kyle Ash MD Primary Care Provider Encounter Details Date Type Department Care Team (Late st Contact Info) Description 04/09/2019 Abstract SFL CONVERSION [address] [place] [address] , Generic Conversion, Social History Tobacco Use [...] on filedocumented in this encounter Care Teams Human Resources Generalist Relationship Specialty Start Date End Date Kyle Ash MD [address] [place] [phone] PCP - General FAMILY PRACTICE 09/24/21 documented as of this encounter
[2025-08-02 15:09] LABS: ANA by IFA Rfx Titer/Pattern Negative (.)
== END 2025-07-31 12:34 | disposition home or self-care (01) ==
LOC: ANHGOSHLAB 12:33
PROVIDERS: PCP Otolaryngology; Visit Provider Otolaryngology
DX: K11.7 Disturbances of salivary secretion (principal); J32.9 Chronic sinusitis, unspecified
CPT/HCPCS: 86038; 86235

== ENCOUNTER 2025-08-10 12:43 | Outpatient (CLI) | payer OTHER, SELFPAY ==
--- NOTE | ~2025-08-10 | CT_ITS ---
EXAMINATION: CT sinus wo con COMPARISON: None HISTORY: J32.9 - Chronic sinusitis, unspecified TECHNIQUE: Axial images were obtained without IV contrast. Sagittal, coronal reconstruction images were obtained from the axial views. CT scan performed using dose optimization techniques including the following automated exposure control; adjustment of mA and/or kV; use of iterative reconstruction technique. Automatic exposure control was used to reduce radiation dose. Permanent radiation dose record is archived to PACS. FINDINGS: Nasal bones intact. Anterior maxillary sinus yoo and zygomatic arches intact. Temporomandibular joints, medial orbits and orbital floors appear intact Minimal mucosal thickening within the frontal sinuses. Moderate mucosal thickening in the ethmoidal air cells. Moderate mucosal thickening in the maxillary sinuses. The ostiomeatal complexes are patent. Nasal septum. Deviated to the right, no significant narrowing of the nasal cavities with thickening of the turbinates. Minimal mucosal thickening noted in the sphenoid sinuses. No osseous destruction or wall thickening evident. IMPRESSION: Sinusitis detailed above Reviewed, dictated and finalized at location P. IMPRESSION: Sinusitis detailed above
== END 2025-08-10 12:44 | disposition home or self-care (01) ==
PROVIDERS: PCP Physician Assistant; Visit Provider Otolaryngology
DX: J32.9 Chronic sinusitis, unspecified (principal)
CPT/HCPCS: 70486